=== PATIENT | male | born 1965 | race Caucasian/White ===

== ENCOUNTER 2019-03-28 22:02 | Inpatient (IN) | payer OTHER, SELFPAY ==
[2019-03-28 21:30] VITALS: BP 102/80; PULSE 97; RESP 25; TEMP 36.6; O2SAT 95
--- NOTE | 2019-03-28 21:38 | HP.PCM_ITS ---
Problem List (1) Systolic heart failure Status: Acute History of Present Illness Date of Admission: 03/29/19 Chief Complaint: swelling of leg and trunk A 54 year old with who was transferred from [facility] with heart failure with reduced ejection fraction. Patient reports that he went to his PCPs office because of bilateral leg edema and edema of his abdomen. Patient was on home lisinopril and he thought that the lisinopril might have contributed to his edema. Outpatient was started on Lasix p.o. by his PCP. However because his creatinine was found to be elevated he was sent to the emergency department. At the emergency department he was looking purple and was found to be in A. fib with RVR. Reportedly he went into cardiac arrest and he was in V. fib. He also reported that he was in respiratory failure and was intubated. Also because of dysrhythmia he was shocked. At [facility] he was in flash pulmonary edema. He was diuresed with IV lasix and he was put on dobutamine drip. Also he had a swan merly catheter at one point. His urine output as reported by the admitting hospitalist was 21 L during his stay at [facility]. However on arrival patient reported that his total urine output was 53 L. Reportedly his platelets from [facility] was 69,000 and HIT work-up was initiated. Reportedly his ejection fraction was found to be 24%. The plan was to get a heart cath outpatient. Patient was transferred to our hospital because of insurance issues. Past Medical History Medical History: Medical History (Last Reviewed 03/29/19 @ 06:43 by Ezra Hickey MD) HTN (hypertension) I10 Home Medications: Ambulatory Orders Medication Instructions Recorded Albuterol IH (ProAir) [Proair Hfa 1 puff INHALATION Q4H PRN PRN 03/29/19 (SP)Vent Pts] Fluticasone/Salmeterol [Advair 1 puff INHALATION BID 03/29/19 250-50 Diskus] Lisinopril 20 mg PO 03/29/19 Surgical History: - - A cyst was removed from his left knee when he was at about age 16. Lives: With Family Smoking Status: Never smoker Alcohol: Occasional - *Family History Maternal History Items: - - Bipolar Paternal History Items: - - Patient does not know about his paternal medical history. Review of Systems Constitutional: Denies: Chills, Fever HEENT: Denies: Head Aches, Sinus Congestion, Sinus Drainage Cardiovascular: Reports: Edema - Resolved, Orthopnea - resolved, Paroxysmal Noc. Dyspnea - resolved. Denies: Chest Pain, Palpitations Respiratory: Reports: Shortness of Breath - Resolved. Denies: Shortness of breath at rest, Sputum production Gastrointestinal: Denies: Abdominal Pain, Nausea, Vomiting Genitourinary: Denies: Dysuria Musculoskeletal: Denies: Joint Pain, Joint Tenderness Skin: Denies: Rash, Wounds Neurological: Denies: Numbness, Tingling, Focal weakness Psychiatric: Denies: Anxiety, Depression, Homicidal Ideations, Suicidal Ideations Hematologic/ Lymphatic: Denies: Easy Bruising, Easy Bleeding VTE Information - Inpt Only VTE Present on Admission: No VTE Mechan Device Prophylaxis: None VTE Pharm Prophylaxis ordered?: No Reason prophylaxis not ordered:: Treatment Not Indicated - Patient on heparin drip for A. fib. Patient Problems: Active and Suspected Problems (Last Reviewed 03/29/19 @ 06:40 by Ezra Hickey MD) Systolic heart failure (Acute) - Physical Exam General: Alert, Oriented x3, Cooperative HEENT: Atraumatic, PERRLA, EOMI, Normocephalic Neck: Supple, No JVD, Negative Carotid Bruits Lungs: Clear to auscultation, Normal air movement Cardiovascular: Regular Rhythm, Normal S1, Normal S2, No murmurs, Tachycardic Abdomen: Bowel Sounds Present, Soft, Non Tender Extremities: No edema, Capillary Refill Less than 3 Seconds Skin: No rashes, No breakdown Musculoskeletal: No Tenderness to Palpation of Joints or Extremities Neurological: Cranial nerves II-XII grossly intact Psych/Mental Status: Normal Affect, Appropriate Assessment/Plan All Active Problems (Last Reviewed 03/29/19 @ 06:40 by Ezra Hickey MD) Systolic heart failure (Acute) A 54 year old with who was transferred from [facility] with heart failure with reduced ejection fraction Acute systolic heart failure We will transition patient from Lasix IV to p.o. Lasix. Start with Lasix 40 mg p.o. x1 and potassium supplementation. Check electrolytes and trend accordingly. Consider guideline directed medical therapy for heart failure. Accepting Hospitalist discussed case with Dr. Erickson before patient presented. Consult Cardiology. We will keep patient on dobutamine for now. Daily weights. Strict intake and output. 2 g cardiac diet. A. fib On presentation patient had sinus tachycardia with rate less than 110.. Although he had A. fib with RVR at outside hospital. Continue telemetry. Continue anticoagulation with heparin and Coumadin. Cardiology consult. TIMBO On presentation his creatinine was 1.51. Reportedly at [facility] his creatinine was initially 3 and it improved to 1.44 Treat heart failure. Trend BMP. Avoid nephrotoxins. Thrombocytopenia Reportedly his platelet was 69,000 at [facility]. On presentation here his platelet is 81,000. Continue anticoagulant therapy with heparin.. Check HIT work-up initiated from outside hospital. Reportedly Coumadin was initiated at [facility]. Check INR and continue warfarin if INR is not therapeutic. Of note patient has insurance/financial issues. DVT Prophylaxis Not indicated as patient is on anticoagulant therapy. Code Visit Inpatient E&M: 88702 Init Hosp L3
[2019-03-28 21:45] VITALS: BP 114/78; PULSE 110; PULSE 98; RESP 30; O2SAT 92; BMI 35.1
[2019-03-28 22:00] VITALS: BP 110/75; PULSE 98; RESP 25; O2SAT 94
[2019-03-28 22:30] VITALS: BP 113/95; PULSE 100; RESP 31; O2SAT 96
[2019-03-28 23:00] VITALS: BP 130/85; PULSE 91; RESP 30; TEMP 36.6; O2SAT 95
[2019-03-28 23:10] LABS: Absolute Lymphocyte Count 0.53 X10^3/uL (0.83-4.51); Absolute Neutrophil Count 6.1 X10^3/uL (2.0-7.7); Basophil# 0.03 X10^3/uL; Basophil% 0.4 % (0-1); Eosinophil# 0.29 X10^3/uL; Eosinophils% 3.6 % (0-5); Hematocrit 40.9 % (40-54); Hemoglobin 13.1 g/dL (13.0-16.5); Lymphocyte # 0.53 X10^3/ul (4.0); Lymphocyte % 6.5 % (19-41); Mean Corpuscular Hgb 33.2 pg (27.0-32.0); Mean Corpuscular Volume 103.5 fL (80-94); Monocyte# 1.16 X10^3/uL; Monocyte% 14.2 % (0-10); NRBC Flagged by Analyzer 0 % (0-5); Neutrophil # 6.09 X10^3/uL (2.7-7.7); Neutrophil % 74.7 % (47-70); POSITIVE COUNT YES; POSITIVE DIFFERENTIAL YES; Platelet Count 81 K/mm3 (150-450); RBC Distribution Width CV 13.1 % (11.6-14.6); RBC Distribution Width SD 50.4 fl (35.1-43.9); Red Blood Count 3.95 M/mm3 (4.6-6.2); White Blood Count 8.2 K/mm3 (4.4-11.0)
[2019-03-28] MEDS: HEPARIN/D5w 25,000 UNITS 25,000 UNITS/250 ML IV.SOLN. 16 UNITS IV (23:10)
[2019-03-28 23:16] LABS: Differential Indicated SCAN CRITERIA MET
[2019-03-28 23:22] LABS: Anion Gap 6 (5-15); BUN 21 mg/dL (7-18); BUN/Creat Ratio 13.9 RATIO (10-20); Calcium,Total 7.7 mg/dL (8.5-10.1); Chloride 93 mmol/L (98-107); Creatinine, Serum 1.51 mg/dL (0.70-1.30); EST Glomerular Filtration Rate 52 mL/min (>60); Est Glom Filt Rate - Afr Amer 63 mL/min (>60); Estimated Creatinine Clearance 63.94 ml/min; Glucose 128 mg/dL (74-106); Potassium 3.8 mmol/L (3.5-5.1); Sodium Level 138 mmol/L (136-145)
[2019-03-28 23:38] LABS: Partial Thromboplast Time 140.8 Seconds (24.1-36.2)
[2019-03-28 23:43] VITALS: BP 128/84; PULSE 108
[2019-03-28] MEDS: DOBUTamine 500mg PM 500 MG/250 ML IV.SOLN. 9.1 MG CONT INF (23:43)
[2019-03-28 23:46] LABS: Differential Comment SCANNED
[2019-03-29] VITALS (23 sets, daily range): BP systolic 106–153; BP diastolic 63–89; PULSE 89–107; RESP 14–33; TEMP 36.5–37.2; O2SAT 89–100
[2019-03-29] MEDS: 0.9% Saline Lock 10 ML Syringe IV ×3 (05:36→17:30)
[2019-03-29 06:01] LABS: Hematocrit 41.3 % (40-54); Hemoglobin 13.1 g/dL (13.0-16.5); Mean Corp Hgb Conc 31.7 g/dL (32-36); Mean Corpuscular Hgb 33.1 pg (27.0-32.0); Mean Corpuscular Volume 104.3 fL (80-94); Mean Platelet Vol. 12.2 fl (6.2-12.0); POSITIVE COUNT YES; Platelet Count 90 K/mm3 (150-450); RBC Distribution Width CV 13.1 % (11.6-14.6); RBC Distribution Width SD 50.6 fl (35.1-43.9); Red Blood Count 3.96 M/mm3 (4.6-6.2); White Blood Count 8.9 K/mm3 (4.4-11.0)
[2019-03-29 07:05] LABS: Anion Gap 4 (5-15); BUN 20 mg/dL (7-18); BUN/Creat Ratio 15.7 RATIO (10-20); Calcium,Total 7.9 mg/dL (8.5-10.1); Chloride 93 mmol/L (98-107); Creatinine, Serum 1.27 mg/dL (0.70-1.30); EST Glomerular Filtration Rate 63 mL/min (>60); Est Glom Filt Rate - Afr Amer 76 mL/min (>60); Estimated Creatinine Clearance 76.02 ml/min; Glucose 118 mg/dL (74-106); International Normalized Ratio 1.1; Potassium 3.8 mmol/L (3.5-5.1); Prothrombin Time (Protime)PT. 13.9 SECONDS (11.7-14.9); Sodium Level 137 mmol/L (136-145)
[2019-03-29 07:06] LABS: Partial Thromboplast Time 37.6 Seconds (24.1-36.2)
[2019-03-29] MEDS: Albuterol 2.5 MG/3 ML VIAL.NEB. INHALATION ×2 (07:32→18:48)
[2019-03-29] MEDS: Budesonide Respules 0.5 MG/2 ML AMPUL.NEB. INHALATION ×2 (07:32→18:48)
--- NOTE | 2019-03-29 07:47 | ECHOCS_ITS ---
Reason For Study: DYSPNEA/SOB Procedure This was a 2D Doppler, Color Flow transthoracic echocardiogram. The study was technically difficult. Due to body habitus. Contrast injection was performed. Exam performed portable in ICU/CCU. Left Ventricle Moderately dilated left ventricle. The estimated ejection fraction is 37 %. Stage 2 diastolic dysfunction. There is moderate global hypokinesis of the left ventricle. Right Ventricle Normal RV size. Normal systolic function. Atria The left atrium is moderately enlarged. The right atrium is moderately enlarged. Mitral Valve Normal mitral valve. Tricuspid Valve Normal tricuspid valve. Mild to moderate (1-2+) tricuspid valve insufficiency. Pulmonary artery systolic pressure is 28 mmHg. Aortic Valve The aortic valve is not well visualized. Pulmonic Valve The pulmonic valve is not well visualized. Great Vessels Normal aortic root. The pulmonary artery is normal size. Normal inferior vena cava. Pericardium/Pleural No pericardial effusion. MMode/2D Measurements & Calculations LVIDd: 6.2 cm IVSd: 1.4 cm LAV(MOD-bp): 118.5 ml LVIDs: 4.6 cm LVPWd: 1.3 cm LAV(MOD-bp) Indexed: 48.8 ml/m2 RVDd: 3.9 cm FS: 26.6 % LAV(MOD-sp2): 100.2 ml LAV(MOD-sp4): 110.8 ml LA dimension(2D): 5.0 cm LA A4 area: 32.4 cm2 RA A4 area: 27.2 cm2 Time Measurements MV dec time: 0.16 sec Doppler Measurements & Calculations MV E max dennis: 99.4 cm/sec Lat Peak E' Dennis: 10.0 cm/sec Med Peak E' Dennis: 8.6 cm/sec MV A max dennis: 61.1 cm/sec E/E' lat: 9.9 E/E' med: 11.6 MV E/A: 1.6 Ao V2 max: 138.4 cm/sec LV V1 max: 122.7 cm/sec MR max dennis: 403.1 cm/sec Ao max P.7 mmHg LV V1 max P.0 mmHg MR max P.0 mmHg PA V2 max: 119.2 cm/sec PI end-d dennis: 111.9 cm/sec TR max dennis: 243.5 cm/sec TR max P.8 mmHg Interpretation Summary Moderately dilated left ventricle. The estimated ejection fraction is 37 %. Stage 2 diastolic dysfunction. The left atrium is moderately enlarged. The right atrium is moderately enlarged. Contrast injection was performed. Ordering Physician: Georgina^Franklin^^^ Referring Physician: OTD Performed By: Sirena Collins, WALT, RVT
--- NOTE | 2019-03-29 07:58 | EKG12_ITS ---
Test Reason : OTHER Blood Pressure : / mmHG Vent. Rate : 088 BPM Atrial Rate : 088 BPM P-R Int : 158 ms QRS Dur : 092 ms QT Int : 422 ms P-R-T Axes : 036 090 090 degrees QTc Int : 510 ms Normal sinus rhythm T wave abnormality, consider anterior ischemia Prolonged QT Abnormal ECG Confirmed by TRINIDAD BALLARD ([id number]), market editor DOTTIE SILVER ([id number]) on 04/10/2019 10:48:00 AM Referred By: MATIAS Confirmed By:TRINIDAD BALLARD
[2019-03-29 08:25] LABS: Magnesium 1.8 mg/dL (1.6-2.6)
[2019-03-29] MEDS: Furosemide 40 MG/4 ML Vial IV ×2 (09:54→17:30)
[2019-03-29] MEDS: Enoxaparin 40 MG/0.4 ML Syringe SC (09:54)
--- NOTE | 2019-03-29 11:28 | NURSING ---
Janine was in place upon admission from [facility].
[2019-03-29] MEDS: Carvedilol 3.125 MG TABLET PO ×2 (11:33→21:16)
--- NOTE | 2019-03-29 12:19 | CASEMGMT ---
RN CM Assessment Presentation: CHF Intro role of CM and purpose of RN CM assessment to patient in room. Pt is awake, alert and able to participate in assessment. Demographics, PCP and Pharmacy verified. Pt states he is independent, no care needs. PCP: Dr. Lucy Watkins Specialists: none Preferred [facility]acy: [facility] [place] [place] Insurance: [employer] Prescription Benefit: yes LNOK: Mother Harmony Watkins Living Arrangements: Lives independently. No care needs identified. Transportation: drives DME: none HHC: none Patient DC goals: home DC PLAN: home on dc. Jesusita FIERRO RN ACM
--- NOTE | 2019-03-29 12:36 | PCM.PN.HOSP ---
Patient Problems: Active and Suspected Problems (Last Reviewed 03/29/19 @ 06:43 by Ezra Hickey MD) Systolic heart failure (Acute) Subjective: Follow-up on CHF: Patient was seen and examined in the ICU. He is off dobutamine drip. He denied any chest pain or dizziness or palpitations. Vitals/I&O's: Vital Signs Temp Pulse Resp BP Pulse Ox 97.7 F L 100 16 123/77 H 100 03/29/19 08:00 03/29/19 11:00 03/29/19 11:00 03/29/19 11:00 03/29/19 11:00 Oxygen Flow Rate (L/min) 2 Oxygen Delivery Method Nasal Cannula Weight: 120.7 kg Body Mass Index (BMI) 35.1 Intake and Output for Last 24 Hours 03/27/19 03/28/19 03/29/19 23:59 23:59 23:59 Intake Total 5.33 / 105.33 256.19 / 256.19 Output Total 1200 / 1200 Balance 5.33 / 105.33 -943.81 / -943.81 General: Alert, Oriented x3, Cooperative, No apparent distress HEENT: Atraumatic, PERRLA, EOMI, Normocephalic Oral: Moist Mucosa Neck: Supple Lungs: Clear to auscultation, Normal air movement Cardiovascular: Regular rate, Regular Rhythm, Normal S1, Normal S2, No murmurs Abdomen: Bowel Sounds Present, Soft, Non Tender, Non-Distended, No Hepato-splenomegaly Extremities: Edema - bilateral leg edema +1, woody to touch Skin: No rashes, No breakdown Musculoskeletal: No Tenderness to Palpation of Joints or Extremities Lymphatic: No Cervical, Supraclavicular, or Inguinal Adenopathy Neurological: Cranial nerves II-XII grossly intact, Neuro grossly intact Psych/Mental Status: Normal Affect, Appropriate Laboratory Results 03/28/19 22:40: WBC 8.2, RBC 3.95 L, Hgb 13.1, Hct 40.9, MCV 103.5 H, MCH 33.2 H, MCHC 32.0, RDW Std Deviation 50.4 H, RDW Coeff of Natalia 13.1, Plt Count 81 L, MPV 12.0, Immature Gran % (Auto) 0.600, Neut % (Auto) 74.7 H, Lymph % (Auto) 6.5 L, [place] % (Auto) 14.2 H, Eos % (Auto) 3.6, Baso % (Auto) 0.4, Absolute Neuts (auto) 6.1, Absolute Lymphs (auto) 0.53 L, Nucleated RBC % 0, Differential Comment SCANNED 03/28/19 22:40: APTT 140.8 H* 03/28/19 22:40: Sodium 138, Potassium 3.8, Chloride 93 L, Carbon Dioxide 39.0 H, Anion Gap 6, BUN 21 H, Creatinine 1.51 H, Estim Creat Clear Calc 63.94, Est GFR (MDRD) Af Amer 63, Est GFR (MDRD) Non-Af 52 L, BUN/Creatinine Ratio 13.9, Glucose 128 H, Calcium 7.7 L 03/29/19 05:35: WBC 8.9, RBC 3.96 L, Hgb 13.1, Hct 41.3, MCV 104.3 H, MCH 33.1 H, MCHC 31.7 L, RDW Std Deviation 50.6 H, RDW Coeff of Natalia 13.1, Plt Count 90 L, MPV 12.2 H 03/29/19 05:35: PT Cancelled, INR Cancelled 03/29/19 05:35: Sodium Cancelled, Potassium Cancelled, Chloride Cancelled, Carbon Dioxide Cancelled, Anion Gap Cancelled, BUN Cancelled, Creatinine Cancelled, Estim Creat Clear Calc Cancelled, Est GFR (MDRD) Af Amer Cancelled, Est GFR (MDRD) Non-Af Cancelled, BUN/Creatinine Ratio Cancelled, Glucose Cancelled, Calcium Cancelled 03/29/19 05:35: APTT Cancelled 03/29/19 05:35: Albumin Cancelled 03/29/19 06:45: PT 13.9, INR 1.1, APTT 37.6 H 03/29/19 06:45: Sodium 137, Potassium 3.8, Chloride 93 L, Carbon Dioxide 40.0 H, Anion Gap 4 L, BUN 20 H, Creatinine 1.27, Estim Creat Clear Calc 76.02, Est GFR (MDRD) Af Amer 76, Est GFR (MDRD) Non-Af 63, BUN/Creatinine Ratio 15.7, Glucose 118 H, Calcium 7.9 L, Albumin 3.0 L 03/29/19 06:45: Magnesium 1.8 Current Medications Acetaminophen (Tylenol) 650 mg PO Q6H PRN PRN PRN Reason: Pain Score 1-3/Temp > 100.7 F Albuterol Sulfate (Ventolin Aerosols) 2.5 mg INHALATION Q6HWA.RT [facility] Last Admin: 03/29/19 07:32 Dose: 2.5 mg Documented by: Budesonide (Pulmicort Aerosol) 0.5 mg INHALATION Q12H.RT [facility] Last Admin: 03/29/19 07:32 Dose: 0.5 mg Documented by: Carvedilol (Coreg) 3.125 mg PO BID [facility] Last Admin: 03/29/19 11:33 Dose: 3.125 mg Documented by: Dextrose (D50w Syringe) 0 gm IV X1 PRN; Protocol PRN Reason: Hypoglycemia Enoxaparin Sodium (Lovenox) 40 mg SC DAILY@0600 [facility] Last Admin: 03/29/19 09:54 Dose: 40 mg Documented by: Furosemide (Lasix) 40 mg IV BID@1000,1800 [facility] Last Admin: 03/29/19 09:54 Dose: 40 mg Documented by: Glucagon () 1 mg IM .X1 PRN PRN Reason: Hypoglycemia Sodium Chloride () 250 mls @ 15 mls/hr IV .[id number] PRN PRN Reason: Saline Flush Last Infusion: 03/29/19 10:01 Dose: 0 mls/hr Documented by: Ondansetron HCl (Zofran) 4 mg IV Q8H PRN PRN PRN Reason: NAUSEA/VOMITING Sodium Chloride () 10 - 40 ml IV UD PRN PRN Reason: SALINE FLUSH Last Admin: 03/29/19 09:55 Dose: 40 ml Documented by: STROKE Vital Signs/Narrative: Vital Signs Pulse Resp BP Pulse Ox 03/29/19 11:00 100 16 123/77 H 100 03/29/19 10:00 104 H 30 H 128/76 H 96 03/29/19 09:00 89 21 H 117/74 93 Medical Necessity - Tobacco Use Smoking Status: Never smoker Assessment/Plan All Active Problems (Last Reviewed 03/29/19 @ 06:43 by Ezra Hickey MD) Systolic heart failure (Acute) 1. Acute systolic CHF, repeat 2D echo shows EF of 37%, stage II diastolic dysfunction with global hypokinesis of the left ventricle Patient is on Lasix, will be going for cardiac cath in a.m. Continue on aspirin, Plavix, carvedilol Strict I's and O's, CHF protocol 2. A. fib, normal sinus rhythm, reportedly on Coumadin and heparin INR is 1.1 Will hold off coumadin pending cardiac cath 3. Hypertension, controlled, blood pressure remains stable after initiating Coreg, will continue to monitor 4. Hypomagnesemia, Mg 1.8, will continue on magnesium IV,repeat blood work in am 5. CKD stage 3, Cr continue to improv, will trend labs 6. Thrombocytopenia, Plt is 90, will monitor whilst on Heparin SC 7. DVT PPx- Lovenox SC Code Visit Inpatient E&M: 43356 Subs Hosp L2
[2019-03-29] MEDS: Clopidogrel Bisulfate 300 MG Tablet PO (14:19)
[2019-03-29] MEDS: Aspirin 81 MG TAB.CHEW PO (14:19)
--- NOTE | 2019-03-29 16:49 | CON.PCM_ITS ---
Reason for Consult Date of Consultation: 03/29/19 Reason for Consultation: Shortness of breath History of Present Illness: The patient is a 54 year old M with a history of hypertension, morbid obesity, diabetes mellitus, who was admitted to [facility] for shortness of breath. He apparently had been complaining of the above for approximately 1 month. He was noted to have swelling in the abdomen as well and has pedal edema. He was apparently having worsening renal function was seen by his primary care physician and was sent to the emergency room. In the emergency room he was noted to be in atrial fibrillation with a rapid ventricular response rate of 200 bpm with systolic blood pressures of over 220 mmHg. Oximetry saturation was 90% he was placed on a nonrebreather mask and subsequently intubated when he became unresponsive. He was cardioverted with 200 J of sy nchronized DC cardioversion energy his natruretic peptide was noted to be elevated and his liver function tests were also noted to be markedly elevated. An echocardiogram performed today demonstrated global reduction in left ventricular systolic function estimated at 10 to 20%. He was started on epinephrine had a central line placed as well as a [place] catheter. His PA pressures were noted to be 37/11 with a cardiac index of 6 L/min on 3 mics per KG per minute of dobutamine. He also did develop a wide-complex tachycardia while he was in the hospital. For reasons that are not entirely clear but probably related to insurance reasons it was decided to transfer him here to this hospital. He is denied any chest pain or paroxysmal nocturnal dyspnea. He still has some pedal edema. He has had no dizziness prior to coming here. [] Past Medical History Allergies/Adverse Reactions: Allergies No Known Allergies Allergy (Verified 03/28/19 21:53) Home Medications: Ambulatory Orders Medication Instructions Recorded Albuterol IH (ProAir) [Proair Hfa 1 puff INHALATION Q4H PRN PRN 03/29/19 (SP)Vent Pts] Fluticasone/Salmeterol [Advair 1 puff INHALATION BID 03/29/19 250-50 Diskus] Lisinopril 20 mg PO 03/29/19 Surgical History: - - A cyst was removed from his left knee when he was at about age 16. - *Family History Maternal History Items: - - Bipolar Paternal History Items: - - Patient does not know about his paternal medical history. Lives: With Family Smoking Status: Never smoker Alcohol: Occasional Review of Systems - Review of Systems General: Denies: Fever, Night Sweats, Fatigue HEENT: Denies: Vision Change Cardiovascular: Reports: Shortness of Breath, Shortness of Breath at Rest, Shortness of Breath with Exertion, PND, Peripheral Edema. Denies: Chest Discomfort, Orthopnea, Palpitations, Lightheadedness, Dizziness, Near Syncope, Syncope Respiratory: Denies: Cough, Sputum Production, Hemoptysis Gastrointestinal: Denies: Hematemesis, Hematochezia, Melena Genitourinary: Denies: Dysuria, Hematuria Muscoloskeletal: Denies: Myalgias Skin: Denies: Rash Neurological: Denies: Dizziness Psychiatric: Denies: Anxiety Endocrine: Denies: Unexplained Weight Loss Subjectve: Obese man in no distress at this time, sitting in bed watching football Objective: Vital Signs Temp Pulse Resp BP Pulse Ox 97.7 F L 96 16 115/63 94 03/29/19 15:01 03/29/19 15:21 03/29/19 15:01 03/29/19 15:01 03/29/19 15:01 Oxygen Flow Rate (L/min) 2 Oxygen Delivery Method Nasal Cannula Weight: 266 lb 1.567 oz Body Mass Index (BMI) 35.1 Intake and Output for Last 24 Hours 03/27/19 03/28/19 03/29/19 23:59 23:59 23:59 Intake Total 5.33 / 105.33 845.19 / 845.19 Output Total 2200 / 2200 Balance 5.33 / 105.33 -1354.81 / -1354.81 General: Awake, Alert, Oriented x 3 HEENT: PERRL, EOMI, Sclera Non Icteric Neck: Supple, Good ROM, No Lymph Node Enlargement Lungs: Diminished Jd Bases Cardiovascular: Regular Rhythm, Normal S1, Normal S2, No Murmurs, No Rubs, No Gallops Vascular: No Carotid Bruits, Normal Femoral Pulses, Normal Radial Pulses, Normal Dorsalis Pedal Pulse, Normal Posterior Tibial Pulses Abdomen: Bowel Sounds Present, Soft, Non Tender, No HSM, No Organomegaly Extremities: No Cyanosis, No Clubbing, Bilateral Edema +1 Musculoskeletal: No Erythema Skin: No Rashes Lymphatic: No Lymph Node Enlargement Neurological: No Focal Motor or Sensory Deficit Psych/Mental Status: Appropriate 03/28/19 22:40: WBC 8.2, RBC 3.95 L, Hgb 13.1, Hct 40.9, MCV 103.5 H, MCH 33.2 H , MCHC 32.0, Plt Count 81 L, MPV 12.0, Immature Gran % (Auto) 0.600, Neut % (Auto) 74.7 H, Lymph % (Auto) 6.5 L, [place] % (Auto) 14.2 H, Eos % (Auto) 3.6, Baso % (Auto) 0.4, Absolute Neuts (auto) 6.1, Nucleated RBC % 0 03/28/19 22:40: APTT 140.8 H* 03/28/19 22:40: Sodium 138, Potassium 3.8, Chloride 93 L, Carbon Dioxide 39.0 H, Anion Gap 6, BUN 21 H, Creatinine 1.51 H, Est GFR (MDRD) Af Amer 63, Est GFR (MDRD) Non-Af 52 L, BUN/Creatinine Ratio 13.9, Glucose 128 H, Calcium 7.7 L 03/29/19 05:35: WBC 8.9, RBC 3.96 L, Hgb 13.1, Hct 41.3, MCV 104.3 H, MCH 33.1 H , MCHC 31.7 L, Plt Count 90 L, MPV 12.2 H 03/29/19 05:35: PT Cancelled, INR Cancelled 03/29/19 05:35: Sodium Cancelled, Potassium Cancelled, Chloride Cancelled, Carbon Dioxide Cancelled, Anion Gap Cancelled, BUN Cancelled, Creatinine Cancelled, Est GFR (MDRD) Af Amer Cancelled, Est GFR (MDRD) Non-Af Cancelled, BUN/Creatinine Ratio Cancelled, Glucose Cancelled, Calcium Cancelled 03/29/19 05:35: APTT Cancelled 03/29/19 06:45: PT 13.9, INR 1.1, APTT 37.6 H 03/29/19 06:45: Sodium 137, Potassium 3.8, Chloride 93 L, Carbon Dioxide 40.0 H, Anion Gap 4 L, BUN 20 H, Creatinine 1.27, Est GFR (MDRD) Af Amer 76, Est GFR (MDRD) Non-Af 63, BUN/Creatinine Ratio 15.7, Glucose 118 H, Calcium 7.9 L 03/29/19 06:45: Magnesium 1.8 Rhythm: EKG: Normal sinus rhythm with nonspecific ST changes. Rate of 88 bpm with T wave changes noted anteriorly ECHO: Mildly dilated left ventricle with global reduction in left ventricular ejection fraction estimated to be 40% Assessment/Plan 1. Congestive heart failure-acute systolic * Patient appears to have presented with congestive heart failure with global reduction in left ventricular systolic function. He was treated with intravenous diuretics as well as pressor agents. He has been transferred over here and repeat echocardiogram demonstrates improvement in his left ventricular function. At this time we have been able to wean him off the pressor agents. * Will start beta-lisa with carvedilol 3.25 mg twice a day * Continue Lasix 40 mg twice a day intravenously * Was scheduled for a left heart catheterization in a.m. to exclude obstructive coronary disease and depending on the findings further recommendations will be made. * After the heart catheterization and VALEIR inhibitor, ARB or Entresto will be added to his regimen. * 2. Hypertension * Patient presented with severe hypertension which appears to have improved. He subsequently became hypotensive. At this particular time he is holding his blood pressure. He does have evidence of left ventricular hypertrophy and this may be the reason for his left ventricular dysfunction. * 3. Obesity * Does have a history of obesity. He will be advised to undergo dietary counseling. * * Thank you for allowing me to participate in the care of your patient. Please don't hesitate to call if any issues arise
--- NOTE | 2019-03-29 19:35 | NURSING ---
Updated father on patient status per okay from patient.
[2019-03-30] VITALS (13 sets, daily range): BP systolic 105–151; BP diastolic 39–81; PULSE 86–100; RESP 18; TEMP 36.9–37.1; O2SAT 92–98
[2019-03-30 05:54] LABS: Absolute Lymphocyte Count 0.65 X10^3/uL (0.83-4.51); Absolute Neutrophil Count 5.6 X10^3/uL (2.0-7.7); Basophil# 0.05 X10^3/uL; Basophil% 0.6 % (0-1); Eosinophil# 0.27 X10^3/uL; Eosinophils% 3.5 % (0-5); Hematocrit 42.1 % (40-54); Hemoglobin 13.5 g/dL (13.0-16.5); Lymphocyte # 0.65 X10^3/ul (4.0); Lymphocyte % 8.4 % (19-41); Mean Corp Hgb Conc 32.1 g/dL (32-36); Mean Corpuscular Hgb 33.5 pg (27.0-32.0); Mean Corpuscular Volume 104.5 fL (80-94); Mean Platelet Vol. 11.6 fl (6.2-12.0); Monocyte# 1.11 X10^3/uL; Monocyte% 14.3 % (0-10); NRBC Flagged by Analyzer 0 % (0-5); Neutrophil % 72.4 % (47-70); Platelet Count 119 K/mm3 (150-450); RBC Distribution Width SD 50.2 fl (35.1-43.9); Red Blood Count 4.03 M/mm3 (4.6-6.2); White Blood Count 7.7 K/mm3 (4.4-11.0)
--- NOTE | 2019-03-30 05:55 | EKG12_ITS ---
Test Reason : AM EKG Blood Pressure : / mmHG Vent. Rate : 097 BPM Atrial Rate : 097 BPM P-R Int : 158 ms QRS Dur : 100 ms QT Int : 394 ms P-R-T Axes : 068 097 081 degrees QTc Int : 500 ms Normal sinus rhythm Rightward axis Nonspecific T wave abnormality Prolonged QT Abnormal ECG No previous ECGs available Confirmed by TRINIDAD BALLARD ([id number]), editor newspaper DOTTIE SILVER ([id number]) on 04/01/2019 12:00:23 PM Referred By: DOTTY Confirmed By:TRINIDAD BLALARD
[2019-03-30 05:57] LABS: Anion Gap 4 (5-15); BUN 27 mg/dL (7-18); BUN/Creat Ratio 22.3 RATIO (10-20); Calcium,Total 8.1 mg/dL (8.5-10.1); Chloride 97 mmol/L (98-107); Creatinine, Serum 1.21 mg/dL (0.70-1.30); EST Glomerular Filtration Rate 67 mL/min (>60); Est Glom Filt Rate - Afr Amer 81 mL/min (>60); Estimated Creatinine Clearance 79.79 ml/min; Glucose 120 mg/dL (74-106); Magnesium 1.9 mg/dL (1.6-2.6); Potassium 4.1 mmol/L (3.5-5.1); Sodium Level 137 mmol/L (136-145)
--- NOTE | 2019-03-30 06:13 | PN_ITS ---
Patient Problems: Active and Suspected Problems (Last Reviewed 03/29/19 @ 06:43 by Ezra Hickey MD) Systolic heart failure (Acute) Vitals/I&O's: Vital Signs Temp Pulse Resp BP Pulse Ox 98.4 F 98 18 128/71 H 93 03/30/19 03:10 03/30/19 03:10 03/30/19 03:10 03/30/19 03:10 03/30/19 03:10 Oxygen Flow Rate (L/min) 2 Oxygen Delivery Method Room Air Weight: 119.9 kg Body Mass Index (BMI) 35.1 Intake and Output for Last 24 Hours 03/28/19 03/29/19 03/30/19 23:59 23:59 23:59 Intake Total 5.33 / 105.33 1195.19 / 1915.19 720 / 720 Output Total 2200 / 2700 500 / 500 Balance 5.33 / 105.33 -1004.81 / -784.81 220 / 220 Laboratory Results 03/29/19 05:35: PT Cancelled, INR Cancelled 03/29/19 05:35: Sodium Cancelled, Potassium Cancelled, Chloride Cancelled, Carbon Dioxide Cancelled, Anion Gap Cancelled, BUN Cancelled, Creatinine Cancelled, Estim Creat Clear Calc Cancelled, Est GFR (MDRD) Af Amer Cancelled, Est GFR (MDRD) Non-Af Cancelled, BUN/Creatinine Ratio Cancelled, Glucose Cancelled, Calcium Cancelled 03/29/19 05:35: APTT Cancelled 03/29/19 05:35: Albumin Cancelled 03/29/19 06:45: PT 13.9, INR 1.1, APTT 37.6 H 03/29/19 06:45: Sodium 137, Potassium 3.8, Chloride 93 L, Carbon Dioxide 40.0 H, Anion Gap 4 L, BUN 20 H, Creatinine 1.27, Estim Creat Clear Calc 76.02, Est GFR (MDRD) Af Amer 76, Est GFR (MDRD) Non-Af 63, BUN/Creatinine Ratio 15.7, Glucose 118 H, Calcium 7.9 L, Albumin 3.0 L 03/29/19 06:45: Magnesium 1.8 03/30/19 05:28: WBC 7.7, RBC 4.03 L, Hgb 13.5, Hct 42.1, MCV 104.5 H, MCH 33.5 H , MCHC 32.1, RDW Std Deviation 50.2 H, RDW Coeff of Natalia 13.0, Plt Count 119 L, MPV 11.6, Immature Gran % (Auto) 0.800, Neut % (Auto) 72.4 H, Lymph % (Auto) 8.4 L, [place] % (Auto) 14.3 H, Eos % (Auto) 3.5, Baso % (Auto) 0.6, Absolute Neuts (auto) 5.6, Absolute Lymphs (auto) 0.65 L, Nucleated RBC % 0 03/30/19 05:28: Sodium 137, Potassium 4.1, Chloride 97 L, Carbon Dioxide 36.0 H, Anion Gap 4 L, BUN 27 H, Creatinine 1.21, Estim Creat Clear Calc 79.79, Est GFR (MDRD) Af Amer 81, Est GFR (MDRD) Non-Af 67, BUN/Creatinine Ratio 22.3 H, Glucose 120 H, Calcium 8.1 L, Magnesium 1.9 Current Medications Acetaminophen (Tylenol) 650 mg PO Q6H PRN PRN PRN Reason: Pain Score 1-3/Temp > 100.7 F Albuterol Sulfate (Ventolin Aerosols) 2.5 mg INHALATION Q6HWA.RT [facility] Last Admin: 03/29/19 18:48 Dose: 2.5 mg Documented by: Aspirin (Aspirin, Baby) 81 mg PO DAILY@0800 [facility] Budesonide (Pulmicort Aerosol) 0.5 mg INHALATION Q12H.RT [facility] Last Admin: 03/29/19 18:48 Dose: 0.5 mg Documented by: Carvedilol (Coreg) 3.125 mg PO BID [facility] Last Admin: 03/29/19 21:16 Dose: 3.125 mg Documented by: Clopidogrel Bisulfate (Plavix) 75 mg PO DAILY [facility] Dextrose (D50w Syringe) 0 gm IV X1 PRN; Protocol PRN Reason: Hypoglycemia Enoxaparin Sodium (Lovenox) 40 mg SC DAILY@0600 [facility] Last Admin: 03/30/19 05:02 Dose: Not Given Documented by: Furosemide (Lasix) 40 mg IV BID@1000,1800 [facility] Last Admin: 03/29/19 17:30 Dose: 40 mg Documented by: Glucagon () 1 mg IM .X1 PRN PRN Reason: Hypoglycemia Sodium Chloride () 250 mls @ 15 mls/hr IV .[id number] PRN PRN Reason: Saline Flush Last Infusion: 03/29/19 15:14 Dose: 0 mls/hr Documented by: Sodium Chloride () 1,000 mls @ 0 mls/hr IV .Q0M [facility] Ondansetron HCl (Zofran) 4 mg IV Q8H PRN PRN PRN Reason: NAUSEA/VOMITING Sodium Chloride () 10 - 40 ml IV UD PRN PRN Reason: SALINE FLUSH Last Admin: 03/29/19 17:30 Dose: 10 ml Documented by: STROKE Vital Signs/Narrative: Vital Signs Temp Pulse Resp BP Pulse Ox 03/30/19 03:10 98.4 F 98 18 128/71 H 93 03/30/19 03:00 100 Medical Necessity - Tobacco Use Smoking Status: Never smoker Assessment/Plan All Active Problems (Last Reviewed 03/29/19 @ 06:43 by Ezra Hickey MD) Systolic heart failure (Acute)
[2019-03-30] MEDS: Carvedilol 3.125 MG TABLET PO (06:19)
[2019-03-30] MEDS: Aspirin 81 MG TAB.CHEW PO (06:19)
[2019-03-30] MEDS: Clopidogrel Bisulfate 75 MG Tablet PO (06:19)
[2019-03-30] MEDS: 0.9% Saline Lock 10 ML Syringe IV ×2 (06:19→12:48)
--- NOTE | 2019-03-30 06:48 | NURSING ---
Report given to SHANNA Deras in [employer].
--- NOTE | 2019-03-30 07:54 | PN.CARD_ITS ---
Subjectve: Patient seen and evaluated Objective: Vital Signs Temp Pulse Resp BP Pulse Ox 98.7 F 96 18 115/80 95 03/30/19 06:15 03/30/19 06:51 03/30/19 06:15 03/30/19 06:15 03/30/19 06:15 Oxygen Flow Rate (L/min) 2 Oxygen Delivery Method Room Air Weight: 264 lb 5.348 oz Body Mass Index (BMI) 35.1 Intake and Output for Last 24 Hours 03/28/19 03/29/19 03/30/19 23:59 23:59 23:59 Intake Total 5.33 / 105.33 1195.19 / 1915.19 750 / 750 Output Total 2200 / 2700 500 / 500 Balance 5.33 / 105.33 -1004.81 / -784.81 250 / 250 General: Awake, Alert, Oriented x 3 HEENT: PERRL, EOMI, Sclera Non Icteric Neck: Supple, Good ROM, No Lymph Node Enlargement Lungs: Clear to auscultation Cardiovascular: Regular Rhythm, Normal S1, Normal S2, No Murmurs, No Rubs, No Gallops Vascular: No Carotid Bruits, Normal Femoral Pulses, Normal Radial Pulses, Normal Dorsalis Pedal Pulse, Normal Posterior Tibial Pulses Abdomen: Bowel Sounds Present, Soft, Non Tender, No HSM, No Organomegaly Extremities: No Cyanosis, No Clubbing, No edema Musculoskeletal: No Erythema Skin: No Rashes Lymphatic: No Lymph Node Enlargement Neurological: No Focal Motor or Sensory Deficit Psych/Mental Status: Appropriate 03/29/19 06:45: Magnesium 1.8 03/30/19 05:28: WBC 7.7, RBC 4.03 L, Hgb 13.5, Hct 42.1, MCV 104.5 H, MCH 33.5 H , MCHC 32.1, Plt Count 119 L, MPV 11.6, Immature Gran % (Auto) 0.800, Neut % (Auto) 72.4 H, Lymph % (Auto) 8.4 L, Ritchie % (Auto) 14.3 H, Eos % (Auto) 3.5, Baso % (Auto) 0.6, Absolute Neuts (auto) 5.6, Nucleated RBC % 0 03/30/19 05:28: Sodium 137, Potassium 4.1, Chloride 97 L, Carbon Dioxide 36.0 H, Anion Gap 4 L, BUN 27 H, Creatinine 1.21, Est GFR (MDRD) Af Amer 81, Est GFR (MDRD) Non-Af 67, BUN/Creatinine Ratio 22.3 H, Glucose 120 H, Calcium 8.1 L, Magnesium 1.9 Rhythm: EKG: ECHO: Stress Test: Cardiac Cath: PCI: CT Surgery: Holter monitor: EPS: PPM: CXR: Chest CT Scan: Medical Necessity - Tobacco Use Smoking Status: Never smoker Assessment/Plan 1. Congestive heart failure-acute systolic * Patient appears to have presented with congestive heart failure with global reduction in left ventricular systolic function. He was treated with intravenous diuretics as well as pressor agents. He has been transferred over here and repeat echocardiogram demonstrates improvement in his left ventricular function. At this time we have been able to wean him off the pressor agents. * Will start beta-lisa with carvedilol 3.25 mg twice a day * Continue Lasix 40 mg twice a day orally * Patient underwent cardiac catheterization today which demonstrated normal coronary arteries. Left ventricular systolic dysfunction estimated at 30%. * Start lisinopril 2.5 mg a day 2. Hypertension * Patient presented with severe hypertension which appears to have improved. He subsequently became hypotensive. At this particular time he is holding his blood pressure. He does have evidence of left ventricular hypertrophy and this may be the reason for his left ventricular dysfunction. * Blood pressures during the cardiac catheterization were noted to be normal. 3. Obesity * Does have a history of obesity. He will be advised to undergo dietary counseling. * * * Patient can probably be discharged later today for outpatient follow-up in my office. * Thank you for allowing me to participate in the care of your patient. Please don't hesitate to call if any issues arise
--- NOTE | 2019-03-30 08:04 | CL.D_ITS ---
Patient Name: YOON ALCANTARA Study Date: 03/30/2019 Performing: Franklin Erickson MD Ht: 72.83 inches 185 cm : 1965 Wt: 264.55 lbs 120 kg Age: 54 Gender: male BSA: 2.42 PROCEDURE(S) PERFORMED [id number]/COR/LV CLINICAL PROFILE AND INDICATIONS Indications: Other, Cardiomyopathy Heart Failure: NYHA Class: 3, Newly Diagnosed: Yes, Heart Failure Type: Systolic Stress/Imaging Stress/Image Study Performed: No CAD Presentations: Other: CHF CONCLUSIONS Normal coronary arteries Global LV systolic dysfunction- Moderate RECOMMENDATIONS Medical therapy DESCRIPTION OF PROCEDURE The patient arrived to the procedure lab. The risks and benefits of the procedure as well as a full d escription of our services here and current unavailability of surgical backup were fully explained to the patient and/or their significant other prior to the catheterization. The Timeout was completed, verifying the correct patient and procedure. The patient's procedural site was prepped and draped in the usual fashion. Local anesthetic was given subcutaneously to left groin region with Lidocaine 2%. Using a modified Seldinger technique, arterial access was obtained via the left femoral artery, a 4Fr sheath was inserted Left Coronary Artery selective angiography was performed in multiple views usin g a 5 Fr. JL 5 catheter. Right Coronary Artery selective angiography was then performed in multiple v iews using a 5 Fr. 3DRC (Antoine) catheter. Left Ventriculography was performed in RED projection us ing a 5 Fr. Pigtail catheter. LV to AO pullback pressures were then recorded.The arterial sheath was pulled and a Mynx closure device was deployed for hemostasis CORONARY ANGIOGRAPHY DOMINANCE: Right Dominant LEFT HEART ASSESSMENT Left Ventricular Ejection Fraction: by LV Gram 30 % Global Hypokinesis - Moderate Depressed Left Ventricular systolic function LEFT MAIN: Angiographically normal LEFT ANTERIOR DESCENDING ARTERY: Angiographically normal CIRCUMFLEX ARTERY: Angiographically normal RIGHT CORONARY ARTERY: Angiographically normal COMPLICATIONS No Complications PROCEDURE MEDICATIONS Versed 1 mg IV Fentanyl 50 mcg IV Oxygen: 2 L/min via nasal cannula Lasix 40 mg IV 03/30/2019 07:45:53 SUMMARY OF HEMODYNAMIC DATA Time AIR REST ECG 07:16:59 AO 107/82 (93) SA 07:36:32 LV 115/23, 32 07:43:50 LV 113/21, 31 07:43:57 [facility] 123/5, 07:44:50 AO 121/80 (96) 07:44:55 Signed By Franklin Erickson MD On 03/30/2019 08:02:57 Franklin Erickson MD
--- NOTE | 2019-03-30 09:27 | CASEMGMT ---
SW spoke with patient as his mom passed on to RN he has depression. SW met with patient, introduced self and role at [facility]. He said his mom has Bipolar. He has not officially been diagnosed with anything, but he has had periods of depression. He said he cares for his father. He said it is tough when he is the only one around to care for him and he has had health issues himself. SW offered to give him a list of counseling agencies that are in network with his insurance and he felt this would be a good idea. KRIS printed a list and gave it to patient. Carlyn JUAN COAL PASSER
--- NOTE | 2019-03-30 10:38 | PCM.DC ---
- Discharge Diagnoses Current Active Problems: Current Active and Chronic Problems (Last Updated 03/30/19 @ 09:37 by Jovanna Narayan) Acute combined systolic (congestive) and diastolic (congestive) heart failure (Acute) Essential (primary) hypertension (Chronic) Non-ischemic cardiomyopathy (Acute) Reason(s) for Visit for Discharge Instructions: Leg swelling, weight gain, acute CHF You will use the following diet at home:: Cardiac, Fluid restricted (specify 2000 mls, 1500 mls) - 1500mls Your food should be the consistency of: Regular Your liquids should be the consistency of: Regular/Thin Discharge Activity: Return to Normal Activity Additional Instructions: Continue to take all your medications as prescribed. Take note of changes to your medication. Continue on a low-fat low-salt diet. Restrict your total fluid intake to less than 1500 mils. Weigh yourself every day. Let your doctor know when you gain more than 2 pounds of weight. Follow-up with your primary care doctor in 1 to 2 weeks. Follow-up with the printer assistant in 2 weeks. Allergies/Adverse Reactions: Allergies No Known Allergies Allergy (Verified 03/28/19 21:53) Medications to take at Discharge Albuterol IH (ProAir) [Proair Hfa] 1 puff INHALATION Q4H PRN PRN 03/29/19 Fluticasone/Salmeterol [Advair 250-50 Diskus] 1 puff INHALATION BID 03/29/19 Acetaminophen [Tylenol Tablet] 650 mg PO Q6H PRN PRN tab 03/30/19 Carvedilol [Coreg (Beta Nika)] 3.125 mg PO BID #60 tab 03/30/19 Furosemide [Lasix] 40 mg PO BID@1000,1800 #60 tab 03/30/19 Lisinopril [Zestril] 2.5 mg PO DAILY #30 tab 03/30/19 The following prescriptions were given: Carvedilol [Coreg (Beta Nika)] 3.125 mg PO BID #60 tab Transmission Status: Received by [facility]/pharmacy #[id number] Furosemide [Lasix] 40 mg PO BID@1000,1800 #60 tab Transmission Status: Received by [facility]/pharmacy #[id number] Lisinopril [Zestril] 2.5 mg PO DAILY #30 tab Transmission Status: Received by [facility]/pharmacy #[id number] Primary Care Physician: DARSHAN LEIJA [Other] Please follow up with your Primary Care Physician in: within 1-2 weeks after discharge Test Results: Test results from this visit will be discussed in further detail at your follow-up appointment, if applicable. Please Follow Up With: Franklin Erickson MD When: in 2 weeks Proposed Discharge Date: 03/30/19
[2019-03-30] MEDS: Lisinopril 2.5 MG Tablet PO (10:42)
[2019-03-30] MEDS: Furosemide 40 MG Tablet PO (10:42)
--- NOTE | 2019-03-30 11:00 | CASEMGMT ---
RN STEPHANIE NOTE: To room to talk with pt. Introduced self/role of RN STEPHANIE. Discussed discharge planning/needs. Pt denies having any needs/concerns with discharging home. Edwardo BSN SHANNA BROWN
--- NOTE | 2019-03-30 11:20 | DS.PCM_ITS ---
Discharge Date and Diagnosis - Problem List Patient Problems: Active and Suspected Problems (Last Updated 03/30/19 @ 09:37 by Jovanna Narayan) Acute combined systolic (congestive) and diastolic (congestive) heart failure (Acute) Non-ischemic cardiomyopathy (Acute) Date of Admission: 03/29/19 Date of Discharge: 03/30/19 - Primary Discharge Diagnosis Active and Suspected Problems (Last Updated 03/30/19 @ 09:37 by Jovanna Narayan) Acute combined systolic (congestive) and diastolic (congestive) heart failure (Acute) Non-ischemic cardiomyopathy (Acute) - Secondary Discharge Diagnosis Chronic Problems (Last Updated 03/30/19 @ 09:37 by Jovanna Narayan) Essential (primary) hypertension (Chronic) Hospital Course and Treatment Cardiology Operations: None Procedures: 2-D Echocardiogram Summary of Care Provided: The patient is a 54 year old M with past medical history of hypertension, morbid obesity admitted to the [facility] with a one-month history of abdominal swelling as well as bilateral leg swelling. He had been on diuretics by his primary care doctor. He was sent to the emergency department by his PCP for worsening renal function. In the emergency department, patient was found to be in A. fib with RVR with heart rate in the 200s. Patient's oxygen was saturating at 90% on a nonrebreather mask. He became unresponsive and had a cardiopulmonary arrest. He was shocked with return of spontaneous circulation. He subsequently got intubated. He was managed in the ICU. His admitting BMP reports 3633, his AST was 1024, his creatinine on admission was 1.9. Management was that of cardiogenic shock secondary to biventricular failure. He was managed on pressors. Patient had a Tescott-Issa catheter placed on 03/24/19. Hemodynamics was consistent with low cardiac output state. He was started on dobutamine drip and aggressive diuresis was also started. Patient also received heparin drip and was on amiodarone initially. He also received antibiotics-cefepime and vancomycin for lower leg cellulitic changes. He was said to have had a normal renal function at baseline prior to this event. His liver enzymes were also elevated and it was believed to be secondary to congestive hepatopathy. Creatinine peaked at 3. They continue to improve with dobutamine and Lasix. His liver enzymes also improved. His ejection fraction was reported as 24% with severe left ventricular enlargement and concentric left ventricular hypertrophy but severe global left ventricular dysfunction. Patient continued to improve and was subsequently extubated on 03/24/19. His troponins were elevated throughout his hospital stay. He converted to normal sinus rhythm during his hospital stay. He continued to remain in sinus tachycardia with runs of nonsustained VT on the morning of admission. Patient was started on Coreg. He was transferred to [facility] for cardiac cath. In [facility], he was managed very briefly on dobutamine drip. His blood pressures improved. He was started back on Coreg. Repeat echo here in [facility] with an EF of 37%. Was transferred out of the ICU on 03/29/19. He had a cardiac cath on 03/30/19 which showed clean coronaries And was educated on CHF protocol with low-salt diet, low-fat diet, moderate exercises. We will continue with fluid restriction. He would take note of changes to his medications and take his Lasix. He knows to weigh himself every day. He will follow-up with his primary care doctor within 1 to 2 weeks and with a drawbridge operator in 2 weeks. Patient Problems: Active and Suspected Problems (Last Updated 03/30/19 @ 09:37 by Jovanna Narayan) Acute combined systolic (congestive) and diastolic (congestive) heart failure (Acute) Non-ischemic cardiomyopathy (Acute) Subjective: On the day of discharge, patient was seen and examined. He denied any new complaint. No chest pain. Objective: Physical exam: General: Alert, Oriented x3, Cooperative, No apparent distress HEENT: Atraumatic, PERRLA, EOMI, Normocephalic Oral: Moist Mucosa Neck: Supple Lungs: Clear to auscultation, Normal air movement Cardiovascular: Regular rate, Regular Rhythm, Normal S1, Normal S2, No murmurs Abdomen: Bowel Sounds Present, Soft, Non Tender, Non-Distended, No Hepato- splenomegaly Extremities: Edema - bilateral leg edema +1, woody to touch Skin: No rashes, No breakdown Musculoskeletal: No Tenderness to Palpation of Joints or Extremities Lymphatic: No Cervical, Supraclavicular, or Inguinal Adenopathy Neurological: Cranial nerves II-XII grossly intact, Neuro grossly intact Psych/Mental Status: Normal Affect, Appropriate - Physical Exam Vitals/I&O's: Vital Signs Temp Pulse Resp BP Pulse Ox 98.7 F 97 18 105/58 L 98 03/30/19 11:10 03/30/19 11:10 03/30/19 11:10 03/30/19 11:10 03/30/19 11:10 Oxygen Flow Rate (L/min) 2 Oxygen Delivery Method Room Air Weight: 119.9 kg Body Mass Index (BMI) 35.1 Intake and Output for Last 24 Hours 03/28/19 03/29/19 03/30/19 23:59 23:59 23:59 Intake Total 5.33 / 105.33 1195.19 / 1915.19 750 / 750 Output Total 2200 / 2700 500 / 500 Balance 5.33 / 105.33 -1004.81 / -784.81 250 / 250 Laboratory Results 03/30/19 05:28: WBC 7.7, RBC 4.03 L, Hgb 13.5, Hct 42.1, MCV 104.5 H, MCH 33.5 H , MCHC 32.1, RDW Std Deviation 50.2 H, RDW Coeff of Natalia 13.0, Plt Count 119 L, MPV 11.6, Immature Gran % (Auto) 0.800, Neut % (Auto) 72.4 H, Lymph % (Auto) 8.4 L, [place] % (Auto) 14.3 H, Eos % (Auto) 3.5, Baso % (Auto) 0.6, Absolute Neuts (auto) 5.6, Absolute Lymphs (auto) 0.65 L, Nucleated RBC % 0 03/30/19 05:28: Sodium 137, Potassium 4.1, Chloride 97 L, Carbon Dioxide 36.0 H, Anion Gap 4 L, BUN 27 H, Creatinine 1.21, Estim Creat Clear Calc 79.79, Est GFR (MDRD) Af Amer 81, Est GFR (MDRD) Non-Af 67, BUN/Creatinine Ratio 22.3 H, Glucose 120 H, Calcium 8.1 L, Magnesium 1.9 Current Medications Acetaminophen (Tylenol) 650 mg PO Q6H PRN PRN PRN Reason: Pain Score 1-3/Temp > 100.7 F Albuterol Sulfate (Ventolin Aerosols) 2.5 mg INHALATION Q6HWA.RT [facility] Last Admin: 03/30/19 07:01 Dose: Not Given Documented by: Budesonide (Pulmicort Aerosol) 0.5 mg INHALATION Q12H.RT [facility] Last Admin: 03/30/19 07:01 Dose: Not Given Documented by: Carvedilol (Coreg) 3.125 mg PO BID [facility] Last Admin: 03/30/19 06:19 Dose: 3.125 mg Documented by: Dextrose (D50w Syringe) 0 gm IV X1 PRN; Protocol PRN Reason: Hypoglycemia Enoxaparin Sodium (Lovenox) 40 mg SC DAILY@0600 [facility] Last Admin: 03/30/19 05:02 Dose: Not Given Documented by: Furosemide (Lasix) 40 mg PO BID@1000,1800 [facility] Last Admin: 03/30/19 10:42 Dose: 40 mg Documented by: Glucagon () 1 mg IM .X1 PRN PRN Reason: Hypoglycemia Heparin Sodium (Beef Lung) (Heparin 500 Unit/5 Ml (100/Ml)) 500 unit IV UD PRN PRN Reason: HEPARIN FLUSH Sodium Chloride () 250 mls @ 15 mls/hr IV .[id number] PRN PRN Reason: Saline Flush Last Infusion: 03/29/19 15:14 Dose: 0 mls/hr Documented by: Sodium Chloride () 1,000 mls @ 0 mls/hr IV .Q0M [facility] Labetalol HCl (Trandate) 5 mg IV X1 PRN PRN Reason: SBP > 160 prior to sheath pull Stop: 04/01/19 07:52 Lisinopril (Zestril) 2.5 mg PO DAILY [facility] Last Admin: 03/30/19 10:42 Dose: 2.5 mg Documented by: Ondansetron HCl (Zofran) 4 mg IV Q8H PRN PRN PRN Reason: NAUSEA/VOMITING Sodium Chloride () 10 - 40 ml IV UD PRN PRN Reason: SALINE FLUSH Last Admin: 03/30/19 06:19 Dose: 20 ml Documented by: Discharge Diet: Low fat/ Low Cholesterol, 6 Cup Fluid Restriction Discharge Activity: Return to Normal Activity Home Medications: Medications to take at Discharge Albuterol IH (ProAir) [Proair Hfa] 1 puff INHALATION Q4H PRN PRN 03/29/19 Fluticasone/Salmeterol [Advair 250-50 Diskus] 1 puff INHALATION BID 03/29/19 Acetaminophen [Tylenol Tablet] 650 mg PO Q6H PRN PRN tab 03/30/19 Carvedilol [Coreg (Beta Nika)] 3.125 mg PO BID #60 tab 03/30/19 Furosemide [Lasix] 40 mg PO BID@1000,1800 #60 tab 03/30/19 Lisinopril [Zestril] 2.5 mg PO DAILY #30 tab 03/30/19 Following Prescrptions Were Given to Patient: Carvedilol [Coreg (Beta Nika)] 3.125 mg PO BID #60 tab Transmission Status: Received by [facility]/pharmacy #[id number] Furosemide [Lasix] 40 mg PO BID@1000,1800 #60 tab Transmission Status: Received by [facility]pharmacy #[id number] Lisinopril [Zestril] 2.5 mg PO DAILY #30 tab Transmission Status: Received by [facility]pharmacy #[id number] Primary Care Physician: DARSHAN LEIJA [Other] Please follow up with your Primary Care Physician in: within 1-2 weeks after discharge Please Follow Up With: Franklin Erickson MD When: in 2 weeks Disposition: Home Minutes spent on discharge:: 40 Patient Condition:: Stable Medical Necessity - Tobacco Use Smoking Status: Never smoker Tobacco Use: Non-smoker Meaningful Use Info Meaningful Use Diagnoses (Choose all that apply): CHF - CHF VALERI/ARB ordered at discharge?: Yes Documented LVEF (%): 37 Code Visit Inpatient E&M: [id number] Disch Hosp
--- NOTE | 2019-03-30 12:30 | NURSING ---
Addendum entered by Charlotte Zhong 03/30/19 14:26: walking Pulse ox completed; patient 92% on RA. Original Note: 1
== END 2019-03-30 14:08 | disposition home or self-care (01) | DRG 287 ==
LOC: ICU 03-29 09:27 → PCU 03-29 14:37
PROVIDERS: Internal Medicine Cardiovascular Disease; Admitting Provider Hospitalist; Visit Provider Internal Medicine
DX: I11.0 Hypertensive heart disease with heart failure (principal); N17.9 Acute kidney failure, unspecified; I50.41 Acute combined systolic (congestive) and diastolic (congestive) heart failure; I42.8 Other cardiomyopathies; D69.6 Thrombocytopenia, unspecified; E66.9 Obesity, unspecified; Z68.35 Body mass index [BMI] 35.0-35.9, adult
CPT/HCPCS: 36415; 80048; 82040; 83735; 85025; 85027; 85610; 85730; 93005; 93306; 93458; 94640; 97162; 97165; 97802; 99152; 99153; C1760; J7040; J7050; Q9957; Q9967; A4216; C1769; C1894; C8929; J1940

== ENCOUNTER → 2019-04-29 09:08 | Outpatient (CLI) | payer OTHER, SELFPAY ==
[2019-04-29 08:22] VITALS: BMI 35.3
[2019-04-29 11:07] LABS: Anion Gap 6 (5-15); BUN 19 mg/dL (7-18); BUN/Creat Ratio 18.4 RATIO (10-20); Calcium,Total 9.3 mg/dL (8.5-10.1); Chloride 101 mmol/L (98-107); Creatinine, Serum 1.03 mg/dL (0.70-1.30); EST Glomerular Filtration Rate 80 mL/min (>60); Est Glom Filt Rate - Afr Amer 97 mL/min (>60); Glucose 134 mg/dL (74-106); Magnesium 1.9 mg/dL (1.6-2.6); Potassium 4.9 mmol/L (3.5-5.1); Sodium Level 137 mmol/L (136-145)
== END ==
PROVIDERS: Referring Provider Internal Medicine Cardiovascular Disease; Visit Provider Internal Medicine Cardiovascular Disease
DX: I42.8 Other cardiomyopathies (principal); I48.91 Unspecified atrial fibrillation; I10 Essential (primary) hypertension
CPT/HCPCS: 36415; 80048; 83735